=== PATIENT | male | born 1955 | race Caucasian/White ===

== ENCOUNTER 2020-05-23 03:31 | Emergency (ER) | payer MEDICARE, BC, MEDICAID ==
[~2020-05-23] VITALS: Ht 182.9 cm; Wt 98.4 kg
--- NOTE | 2020-05-23 03:45 | NUR ---
Patient ambulated with steayd gait. A/Ox4. Speech clear, and speaks in complete sentences. Patient came for c/o RUQ abd pain x2 days that radiates to his mid-abdomen. Denies any n/v/d, or any distress at this time.
--- NOTE | 2020-05-23 03:50 | NUR ---
ERMD at bedside for MSE
--- NOTE | 2020-05-23 04:00 | NUR ---
Lab drawn by field installer.
--- NOTE | 2020-05-23 04:09 | NUR ---
gyroscopic engineering technician at bedside for imaging.
[2020-05-23 04:10] LABS: BASOPHILS # (AUTO) 0.1 K/uL (0.0-8.0); BASOPHILS % (AUTO) 0.8 % (0.0-2.0); EOSINOPHILS # (AUTO) 0.2 K/uL (0.0-0.7); EOSINOPHILS % (AUTO) 2.1 % (0.0-7.0); HEMATOCRIT 40.5 % (36.7-47.1); HEMOGLOBIN 14.2 g/dL (12.5-16.3); LYMPHOCYTES # (AUTO) 1.5 K/uL (20.0-40.0); MEAN CORPUSCULAR HEMOGLOBIN 29.8 uug (23.8-33.4); MEAN CORPUSCULAR HGB CONC 35 g/dL (32.5-36.3); MEAN CORPUSCULAR VOLUME 85.1 fL (73.0-96.2); MONOCYTES # (AUTO) 0.7 K/uL (2.0-10.0); MONOCYTES % (AUTO) 8.2 % (0.0-11.0); NEUTROPHILS # (AUTO) 5.5 K/uL (1.8-8.9); NEUTROPHILS % (AUTO) 69.9 % (38.5-71.5); PLATELET COUNT (AUTO) 256 K/uL (152-348); RED BLOOD CELL COUNT(AUTO) 4.76 MIL/uL (4.06-5.63); WHITE BLOOD COUNT (AUTO) 7.9 K/uL (3.6-10.2)
[2020-05-23 04:18] LABS: CREATININE 1.1 mg/dL (0.6-1.3)
[2020-05-23 04:19] LABS: *BILIRUBIN,URIN NEGATIVE (NEGATIVE); *CLARITY,URINE CLEAR (CLEAR); *COLOR,URINE YELLOW (YELLOW); *KETONES,URINE NEGATIVE (NEGATIVE); *UROBILINOGEN,URINE 0.2 E.U./dl (NORMAL); LEUKOCYTE ESTERASE ,URINE NEGATIVE (NEGATIVE); NITRITE, URINE NEGATIVE (NEGATIVE); PH,URINE 5.5 (5.0-8.0); UGLUCOSE NEGATIVE (NEGATIVE)
[2020-05-23 04:21] LABS: *BLOOD, URINE TRACE (NEGATIVE)
[2020-05-23 04:24] LABS: BILIRUBIN,DIRECT 0.1 mg/dL (0.0-0.2); BILIRUBIN,TOTAL 0.4 mg/dL (0.2-1.0); TOTAL PROTEIN, SERUM 7.2 g/dL (6.4-8.2)
[2020-05-23 04:25] LABS: BACTERIA,URINE NONE SEEN /HPF (NONE SEEN); MUCUS,URINE FEW /LPF (0-FEW); RBC,URINE 0-3 /HPF (0-3); SQUAMOUS EPITHELIAL CELL,UR FEW /HPF (NONE SEEN); WBC,URINE 0-3 /HPF (0-3)
[2020-05-23] MEDS ORDERED: DICYCLOMINE HCL LIQ 10 MG/5 ML UDC PO ONE (05:15)
[2020-05-23] MEDS ORDERED: PANTOPRAZOLE SODIUM 40 MG TABLET.DR PO ONE ×2 (05:15→05:19)
[2020-05-23] MEDS ORDERED: LIDOCAINE VISCUS 2% 15 ML UDC ONE (05:15)
[2020-05-23] MEDS ORDERED: MAG HYDROX/AL HYDROX/SIMETH 30 ML LIQUID UDC PO ONE (05:15)
[2020-05-23] MEDS ORDERED: MAG HYDROX/AL HYDROX/SIMETH 30 ML LIQUID UDC ONE ×2 (05:15→05:19)
[2020-05-23] MEDS ORDERED: DICYCLOMINE HCL LIQ 10 MG/5 ML UDC ONE (05:20)
[2020-05-23 05:21] VITALS: BP 135/88
== END 2020-05-23 05:47 | disposition home or self-care (01) ==
LOC: ER 03:31
DX: K29.70 Gastritis, unspecified, without bleeding (principal); R94.31 Abnormal electrocardiogram [ECG] [EKG]; E78.00 Pure hypercholesterolemia, unspecified
CPT/HCPCS: 36415; 70030-TC; 71045; 83690; 85025; 85730; 93005; A4663